=== PATIENT | female | born 1980 | race Caucasian/White ===

== ENCOUNTER 2021-12-08 20:19 | Outpatient (CLI) | payer OTHER ==
[2021-12-09 21:16] LABS: FECAL OCCULT BLOOD (FIT) NEGATIVE (NEGATIVE)
== END 2021-12-08 23:59 | disposition home or self-care (01) ==
LOC: LAB.N 20:19
PROVIDERS: ATTEND Registered Nurse
DX: K92.1 Melena (principal)
CPT/HCPCS: 82274

== ENCOUNTER 2022-01-03 23:47 | Emergency (ER) | payer OTHER ==
--- NOTE | 2022-01-04 01:06 | ED Physician Documentation ---
PD HPI CHEST PAIN - Stated complaint Stated Complaint: CHEST PX/BACK PX - Chief complaint Chief Complaint: Cardiac - History obtained from History obtained from: Patient - History of Present Illness Timing - onset: How many days ago (2) Timing - onset during: Rest, Light activity. No: Exertion, Eating Timing - duration: Days Timing - details: Gradual onset, Still present, Waxing and waning Quality: Aching, Sharp Location: Left chest Radiation: Back, Left upper extremity (shoulder) Improved by: Rest. No: Antacids Worsened by: Inspiration, Movement. No: Eating Associated symptoms: Feeling faint / dizzy, Other (anxious). No: Shortness of air, Nausea, General Weakness Similar symptoms before: No diagnosis (has had this at times in the past for part of a day. No diagnosis/had not sought care.) Recently seen: Not recently seen Review of Systems Constitutional: denies: Fever Nose: denies: Rhinorrhea / runny nose, Congestion Throat: denies: Sore throat Cardiac: reports: Chest pain / pressure. denies: Palpitations, Pedal edema, Calf pain Respiratory: denies: Dyspnea, Cough GI: reports: Abdominal Pain (some discomfort epigastric as well). denies: [place], Vomiting, Diarrhea Skin: denies: Rash, Lesions PD PAST MEDICAL HISTORY - Past Medical History Cardiovascular: None Respiratory: None Endocrine/Autoimmune: None GI: None Psych: Anxiety PD ED PE NORMAL - Vitals Vital signs reviewed: Yes - General General: Alert and oriented X 3, No acute distress, Well developed/nourished - HEENT HEENT: Pharynx benign - Neck Neck: Supple, no meningeal sign, No adenopathy - Cardiac Cardiac: RRR, No murmur, Other (some chest wall tenderness lower left parasternal. ) - Respiratory Respiratory: No respiratory distress, Clear bilaterally - Abdomen Abdomen: Normal bowel sounds, Soft, Non distended, Other (some tender epigastric area) - Derm Derm: Normal color, Warm and dry - Extremities Extremities: No tenderness to palpate, No edema, No calf tenderness / cord - Neuro Neuro: Alert and oriented X 3, No motor deficit, Normal speech - Psych Psych: No: Normal affect (anxious) Results - Vitals Vitals: Oxygen O2 Source Room air - EKG (time done) 02:47 Rate: Rate (enter#) (71) Rhythm: NSR [place]: Normal Intervals: Normal IN QRS: Normal Ischemia: Normal ST segments, ST elevation c/w repol - Labs Labs: Laboratory Tests 01/04/22 01/04/22 01/04/22 01:24 PST 01:24 PST 01:24 PST WBC 10.2 RBC 5.21 Hgb 14.6 Hct 44.5 MCV 85.4 MCH 28.0 MCHC 32.8 RDW 12.6 Plt Count 280 MPV 10.4 Neut # (Auto) 6.8 H Lymph # (Auto) 2.3 Reeves # (Auto) 0.9 Eos # (Auto) 0.1 Baso # (Auto) 0.0 Absolute Nucleated RBC 0.00 Nucleated RBC % 0.0 Sodium 136 Potassium 4.1 Chloride 107 Carbon Dioxide 24 Anion Gap 5.0 L BUN 16 Creatinine 0.8 Estimated GFR (MDRD) 78 L Glucose 108 H Calcium 9.0 Total Bilirubin 0.2 AST 28 ALT 52 Alkaline Phosphatase 60 Troponin I High Sens < 2.3 L B-Natriuretic Peptide Total Protein 7.5 Albumin 4.1 Globulin 3.4 Albumin/Globulin Ratio 1.2 Lipase 29 01/04/22 01:24 PST WBC RBC Hgb Hct MCV MCH MCHC RDW Plt Count MPV Neut # (Auto) Lymph # (Auto) Reeves # (Auto) Eos # (Auto) Baso # (Auto) Absolute Nucleated RBC Nucleated RBC % Sodium Potassium Chloride Carbon Dioxide Anion Gap BUN Creatinine Estimated GFR (MDRD) Glucose Calcium Total Bilirubin AST ALT Alkaline Phosphatase Troponin I High Sens B-Natriuretic Peptide 10 Total Protein Albumin Globulin Albumin/Globulin Ratio Lipase - Rads (name of study) chest xray Radiology: Prelim report reviewed (no acute process), See rad report PD MEDICAL DECISION MAKING - ED course Complexity details: considered differential (seems costochondral but some element of epigastric and equivocal improvement with gi cocktail. ), d/w patient Departure - Departure Disposition: 01 Home, Self Care Condition: Stable Record reviewed to determine appropriate education?: Yes Instructions: ED Chest Pain NonCardiac Follow-Up: Marek England MD [Primary Care Provider] - Comments: Your EKG and blood tests are normal. No signs of heart failure nor heart attack. Basic electrolytes kidney function and blood sugar are normal. Your chest x-ray does not have any signs of pneumonia nor fluid around the lungs. The radiologist commented on mild bronchial and alveolar prominence that could be seen in the setting of a mild viral infection (chest cold) or mild inflammation such as allergies or smoking. Not clear that these are related to your current symptoms at as to do not seem to have any of those conditions at the moment. Given your chest discomfort, I would be more inclined to consider musculoskeletal type causes. This can be seen in the setting of anxiety at times as we tend to hold tightness in her chest and cause some inflammation there. Consider some ibuprofen or naproxen 2-3 times daily for the next several days to week. See if you develop any other symptoms such as mild congestion cough or fevers as your current symptoms may come before or prelude and impending chest cold. Otherwise no serious causes seen at this time. Discharge Date/Time: 01/04/22 02:54
[2022-01-04] MEDS ORDERED: IBUPROFEN 600 MG TABLET PO STA (01:18)
[2022-01-04 01:32] LABS: BASOPHILS % (AUTO) 0.4 %; EOSINOPHILS # (AUTO) 0.1 10^3/uL (0.0-0.7); EOSINOPHILS % (AUTO) 0.9 %; HCT - HEMATOCRIT 44.5 % (37.0-47.0); HGB - HEMOGLOBIN 14.6 g/dL (12.0-16.0); LYMPHOCYTES # (AUTO) 2.3 10^3/uL (1.5-3.5); LYMPHOCYTES % (AUTO) 22.7 %; MEAN CORPUSCULAR HGB CONC 32.8 g/dL (32.0-36.0); MEAN CORPUSCULAR VOLUME 85.4 fL (81.0-99.0); MEAN PLATELET VOLUME 10.4 fL (7.9-10.8); MONOCYTES # (AUTO) 0.9 10^3/uL (0.0-1.0); MONOCYTES % (AUTO) 8.4 %; NEUTROPHILS # (AUTO) 6.8 10^3/uL (1.5-6.6); NEUTROPHILS % (AUTO) 67.2 %; PLT - PLATELET COUNT 280 10^3/uL (130-450); RED BLOOD COUNT 5.21 10^6/uL (4.20-5.40); RED CELL DISTRIBUTION WIDTH 12.6 % (12.0-15.0); WHITE BLOOD COUNT 10.2 x10^3/uL (4.8-10.8)
--- NOTE | 2022-01-04 01:42 | XRAY Report ---
PROCEDURE: Chest 1 View X-Ray INDICATIONS: Chest Pain TECHNIQUE: One view of the chest was acquired. COMPARISON: None. FINDINGS: Surgical changes and devices: None. Lungs and pleura: No pleural effusions or pneumothorax. Lungs are mildly abnormal with an interstit ial prominence. Mediastinum: Mediastinal contours appear normal. Heart size is normal. Bones and chest wall: No suspicious bony lesions. Overlying soft tissues appear unremarkable. IMPRESSION: Interstitial prominence, mild alveolar prominence. Chronicity is uncertain given the absence of bethany rison plain films. The appearance could be produced by a mild viral pneumonitis. Alternatively, even prior smoking history can produce such an appearance. Reviewed by: Kirk Currie MD on 01/04/2022 1:41 AM PST Approved by: Kirk Currie MD on 01/04/2022 1:41 AM PST Station ID: [id number]
[2022-01-04 01:45] LABS: ALBUMIN 4.1 g/dL (3.2-5.5); ALBUMIN/GLOBULIN RATIO 1.2 (1.0-2.2); BILIRUBIN,TOTAL 0.2 mg/dL (0.2-1.0); CREATININE 0.8 mg/dL (0.4-1.0); POTASSIUM 4.1 mmol/L (3.5-5.0); TOTAL PROTEIN 7.5 g/dL (6.7-8.2)
[2022-01-04 02:53] VITALS: BP 139/97
== END 2022-01-04 02:54 | disposition home or self-care (01) ==
LOC: ED 23:47
DX: R07.9 Chest pain, unspecified (principal)
CPT/HCPCS: 36415; 71045; 80053; 83690; 83880; 84484; 85025; 93005; 99284; A9270

== ENCOUNTER 2022-02-17 13:50 | Outpatient (CLI) | payer OTHER ==
--- NOTE | 2022-02-17 15:19 | Ultrasound Report ---
PROCEDURE: Abdomen Limited INDICATIONS: ABD MASS TECHNIQUE: Real-time focused scanning was performed of the abdomen, with image documentation. COMPARISON: None FINDINGS: At the area palpable area of interest left anterior rib cage, there is a 19 x 10 x 24 mm w ell-circumscribed hypoechoic lesion. 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 Continue clinical follow-up could be obtained and reimaging is suggested if this enlarges o r otherwise becomes symptomatic. Reviewed by: Neal Tapia MD on 02/17/2022 2:17 PM AKST Approved by: Neal Tapia MD on 02/17/2022 2:17 PM AKST Station ID: [id number]
== END 2022-02-17 13:51 | disposition home or self-care (01) ==
LOC: MERGE 13:50 → DI 13:50
PROVIDERS: ATTEND Student in an Organized Health Care Education/Training Program
DX: R19.00 Intra-abdominal and pelvic swelling, mass and lump, unspecified site (principal)